=== PATIENT | male | born 1975 | race Two or more races ===

== ENCOUNTER 2016-11-07 19:57 | Emergency (ER) | payer OTHER ==
[~2016-11-07] VITALS: Ht 167.6 cm; Wt 77.1 kg
[2016-11-07] MEDS ORDERED: DIPHTH,PERTUSS(ACELL),TET TOX 0.5 ML DISP.SYRIN. VAX IM ONE (20:15)
[2016-11-07 20:26] LABS: BASO # 0.1 x10^3/uL (0.0-0.2); BASO % 1 % (0-3); EOS % 1 % (0-3); HEMATOCRIT 42.9 % (39.0-53.0); HEMOGLOBIN 14.5 g/dL (13.0-17.5); LYMPH # 1.6 x10^3/uL (1.0-4.8); LYMPH % 10 % (24-48); MEAN CORPUSCULAR HEMOGLOBIN 30 pg (25-35); MEAN CORPUSCULAR HGB CONC 34 g/dL (31-37); MEAN CORPUSCULAR VOLUME 88 fL (79-100); MONO % 6 % (0-9); NEUT % 83 % (31-73); PLATELET COUNT 275 x10^3/uL (140-400); RED BLOOD COUNT 4.88 x10^6/uL (4.30-5.70); RED CELL DISTRIBUTION WIDTH 13.1 % (11.5-14.5); WHITE BLOOD COUNT 16.6 x10^3/uL (4.0-11.0)
[2016-11-07 20:44] LABS: PROTHROMBIN TIME PATIENT 12.9 SEC (11.7-14.0)
[2016-11-07] MEDS ORDERED: IV NORMAL SALINE 1000ML BAG 1,000 ML IV ONE (20:45)
--- NOTE | 2016-11-07 20:46 | RAD ---
PROCEDURE Head CT without contrast; maxillofacial bone CT without contrast; cervical spine CT without contrast. HISTORY Trauma. TECHNIQUE Computed tomographic images of the head, maxillofacial bones and cervical spine were obtained without contrast. One or more of the following individualized dose reduction techniques were utilized for this examination: 1. Automated exposure control; 2. Adjustment of the mA and/or kV according to patient size; 3. Use of iterative reconstruction technique. COMPARISON None. FINDINGS Head: There is a large left scalp hematoma along the left cerebral convexity there is no evidence intracranial hemorrhage. There is no mass effect or midline shift. There is no hydrocephalus. The anand and white matter differentiation pattern is intact. Maxillofacial bones: No fracture is seen. The orbits are unremarkable. The paranasal sinuses are clear. The ostiomeatal units are patent. There is mild leftward nasal septal deviation. The temporomandibular joints are intact. Cervical spine: There is mild endplate remodeling at multiple levels. There is facet arthropathy at multiple levels. No displaced fracture is seen. There is no severe foraminal or central canal stenosis. There is mild left foraminal stenosis at C5-C6 and C6-C7. IMPRESSION 1. Large left scalp hematoma along the cerebral convexity. No underlying fracture or acute intracranial finding is identified. 2. No evidence of acute maxillofacial bone or cervical spine trauma. Electronically signed by: Nadja Patel (Nov 07, 2016 20:44:29)
[2016-11-07 20:47] LABS: % EOS 1 % (0-5); CALCIUM 9.3 mg/dL (8.5-10.1); CREATININE 1.1 mg/dL (0.7-1.3); GFR 73.1; PLT ESTIMATE ADEQUATE (ADEQUATE); POTASSIUM 3.9 mmol/L (3.5-5.1)
[2016-11-07 21:43] LABS: BARBITURATES NEG (NEG); BENZODIAZEPINES NEG (NEG); CANNABINOIDS NEG (NEG); COCAINE NEG (NEG); METHADONE NEG (NEG); OPIATES NEG (NEG); PHENCYCLIDINE NEG (NEG)
[2016-11-07 21:45] LABS: ETHANOL, URINE NEG (NEG)
[2016-11-07 22:57] VITALS: BP 147/82
[2016-11-07] MEDS ORDERED: ACET325T9 PO (23:01)
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
--- NOTE | 2016-11-08 08:36 | RAD ---
Left shoulder, 3 views, 11/07/2016: History: Shoulder injury No fracture or dislocation is identified. There is mild degenerative change at the AC joint. IMPRESSION: No acute left shoulder abnormality is detected.
== END 2016-11-07 23:17 | disposition home or self-care (01) ==
LOC: EEVIPCON 19:57 → ER 19:57 → EDBD 19:57 → ER 23:17
DX: S00.03XA Contusion of scalp, initial encounter (principal); M25.512 Pain in left shoulder; I10 Essential (primary) hypertension; W18.09XA Striking against other object with subsequent fall, initial encounter; Y93.89 Activity, other specified; Y99.8 Other external cause status; Y92.89 Other specified places as the place of occurrence of the external cause
CPT/HCPCS: 36415; 70450; 70486; 72125; 73030; 80048; 80305; 80320; 85007; 85027; 85610; 85730; 86850; 86900; 86901; 90471; 90715; 96360; 99285; J7030; G0481